=== PATIENT | male | born 1945 | race Caucasian/White ===

== ENCOUNTER → 2021-05-19 09:58 | Outpatient (CLI) | payer OTHER, SELFPAY | PROVIDERS: Family Provider Family Medicine; PCP Family Medicine; Referring Provider Podiatrist; Visit Provider Podiatrist | DX: E11.40 Type 2 diabetes mellitus with diabetic neuropathy, unspecified (principal) | CPT/HCPCS: 95886; 95911 ==

== ENCOUNTER → 2021-08-10 12:15 | Outpatient (CLI) | payer OTHER, SELFPAY ==
--- NOTE | 2021-08-10 | DI.RAD.S_ITS ---
PROCEDURE: XR ABDOMEN 1V INDICATIONS: KIDNEY STONE TECHNIQUE: One view of the abdomen acquired. COMPARISON: [facility], , XR ABDOMEN 1 VIEW, 06/17/2020, 15:04. FINDINGS: Surgical changes and devices: None. Bowel: Bowel gas pattern is normal. Soft tissues: No suspicious abdominal calcifications. Visualized solid organ contours appear normal in size. Atherosclerotic calcifications redemonstrated. Bones: No suspicious bony lesions. Lumbar spine degenerative disc disease. IMPRESSION: No renal stones identified by plain film radiograph. Dictated by: Lauryn Snow MD, PhD on 08/10/2021 at 13:29 Approved by: Lauryn Snow MD, PhD on 08/10/2021 at 13:30
== END ==
PROVIDERS: Family Provider Family Medicine; PCP Family Medicine; Referring Provider Urology; Visit Provider Urology
DX: N20.0 Calculus of kidney (principal)
CPT/HCPCS: 74018